=== PATIENT | male | born 1975 | race Hispanic/Latino ===

== ENCOUNTER 2020-01-08 14:30 | Emergency (ER) | payer OTHER ==
[2020-01-08 15:32] LABS: APPEARANCE,URINE Cloudy (CLEAR); BILIRUBIN,URINE Negative (NEGATIVE); COLOR,URINE Dark Yellow (YELLOW); GLUCOSE, URINE (UA) Negative (NEGATIVE); KETONES,URINE Negative (NEGATIVE); LEUKOCYTE ESTERASE ,URINE Large (NEGATIVE); NITRATE,URINE Positive (NEGATIVE); OCCULT BLOOD,URINE Large (NEGATIVE); PH,URINE 5.5 (5.0-8.0); PROTEIN,URINE POS 2+ mg/dL (NEGATIVE)
[2020-01-08 16:26] LABS: BACTERIA,URINE Few /HPF (None Seen); RBC,URINE >100 /HPF (0-1); SQUAMOUS EPITHELIAL CELL,UR 0-2 /HPF (0-2); WBC,URINE >100 /HPF (0-1)
[2020-01-08] MEDS ORDERED: CEFTRIAXONE SODIUM 2 GM VIAL ONE (16:27)
[2020-01-08] MEDS ORDERED: SODIUM CHLORIDE 0.9% 1000ML 1,000 ML IV ONE (16:28)
[2020-01-08] MEDS ORDERED: SODIUM CHLORIDE 0.9% 100 ML IV ONE (16:28)
[2020-01-08 16:35] LABS: BASOPHILS % (AUTO) 0.4 % (0.0-5.0); EOSINOPHILS % (AUTO) 0.2 % (0.0-8.0); HEMATOCRIT 42.4 % (42-54); LYMPHOCYTES % (AUTO) 10.3 % (21.0-51.0); MEAN CORPUSCULAR HEMOGLOBIN 27.9 pg (27.0-33.0); MEAN CORPUSCULAR HGB CONC 32.8 g/dL (32.0-36.0); MONOCYTES % (AUTO) 8.8 % (3.0-13.0); NEUTROPHILS % (AUTO) 79.8 % (40.0-77.0); PLATELET COUNT (AUTO) 239 K/uL (130-400); RED BLOOD CELL COUNT(AUTO) 4.99 MIL/uL (4.50-6.20); RED CELL DISTRIBUTION WIDTH 13.3 % (11.0-15.5); WHITE BLOOD COUNT (AUTO) 8.1 K/uL (4.8-10.8)
[2020-01-08 17:07] LABS: CREATININE 0.9 mg/dL (0.5-1.5); POTASSIUM 3.8 mmol/L (3.5-5.1)
[2020-01-08 17:17] LABS: ALBUMIN 3.2 g/dL (3.5-5.0); BILIRUBIN,TOTAL 0.4 mg/dL (0.2-1.0); TOTAL PROTEIN, SERUM 7.7 g/dL (6.0-8.3)
== END 2020-01-08 18:12 | disposition home or self-care (01) ==
LOC: EDH 14:30
DX: N39.0 Urinary tract infection, site not specified (principal); N45.3 Epididymo-orchitis; Z72.0 Tobacco use
CPT/HCPCS: 36415; 76870; 80053; 81001; 82948; 83605; 85025; 87040; 96374; 99284; J0696; J7030